=== PATIENT | female | born 1955 | race Caucasian/White ===

== ENCOUNTER 2018-09-21 13:46 | Outpatient (CLI) | payer OTHER ==
--- NOTE | 2018-09-22 15:33 | MMO ---
Bilateral MAMMO Bilat Screen [facility]. CLINICAL HISTORY: Patient is 63 years old and is seen for screening. The patient has the following family history of breast cancer: paternal grandmother, at age 38 and paternal aunt, at age 32. The patient has a history of Skin cancer. VIEWS: The views performed were: bilateral craniocaudal with tomosynthesis and bilateral mediolateral oblique with tomosynthesis. FILMS COMPARED: The present examination has been compared to prior imaging studies performed at [facility] on 08/11/2014 and 05/28/2016, and at [facility] on 05/11/2007, 05/17/2008, 07/18/2009, 07/24/2010 and 08/26/2011. MAMMOGRAM FINDINGS: There are scattered fibroglandular densities. There are benign appearing calcifications seen in both breasts. There are no suspicious masses, calcifications or areas of architectural distortion. IMPRESSION: CALCIFICATIONS IN BOTH BREASTS ARE BENIGN. A ROUTINE FOLLOW-UP MAMMOGRAM IN 1 YEAR IS RECOMMENDED. THE RESULTS OF THIS EXAM WERE SENT TO THE PATIENT. ACR BI-RADS Category 2 - Benign finding MAMMOGRAPHY NOTE: 1. A negative mammogram report should not delay a biopsy if a dominant of clinically suspicious mass is present. 2. Approximately 10% to 15% of breast cancers are not detected by mammography. 3. Adenosis and dense breasts may obscure an underlying neoplasm.
== END 2018-09-21 13:47 | disposition home or self-care (01) ==
LOC: BICMAMMO 13:46
PROVIDERS: ATTEND Family Medicine
DX: Z12.31 Encounter for screening mammogram for malignant neoplasm of breast (principal); R92.1 Mammographic calcification found on diagnostic imaging of breast; Z80.3 Family history of malignant neoplasm of breast; Z85.828 Personal history of other malignant neoplasm of skin
CPT/HCPCS: 77063; 77067

== ENCOUNTER 2018-12-15 09:52 | Day surgery (SDC) | payer OTHER ==
[2018-12-14 15:31] VITALS: BMI 32.5
--- NOTE | 2018-12-15 02:49 | HP ---
HISTORY OF PRESENT ILLNESS: This 63-year-old female comes for a colonoscopy for colon cancer screening. The patient has no specific GI symptoms. There is no family history of colon cancer. ALLERGIES: SULFA AND LEVAQUIN. SOCIAL HISTORY: The patient is a former smoker. Does not drink alcohol. MEDICAL ILLNESS: 1. Skin cancer, status post surgery. 2. Hysterectomy. 3. Retinal tear x2, left eye. 4. Allergic rhinitis. 5. Cataracts. 6. Tendinitis, right shoulder. PHYSICAL EXAMINATION: VITAL SIGNS: Pulse is 72, blood pressure 120/76. HEENT: Conjunctivae clear. CARDIOVASCULAR: First and second heart sounds heard. LUNGS: Clear to auscultation. ABDOMEN: Soft. No organomegaly. No tenderness. No masses. ADMITTING DIAGNOSIS: A 63-year-old female undergoing colonoscopy for colon cancer screening. Job ID: [id number]
--- NOTE | 2018-12-15 11:59 | OP ---
DATE OF PROCEDURE: 12/15/2018 OPERATIVE PROCEDURE: Colonoscopy with biopsy. PREOPERATIVE DIAGNOSIS: A 63-year-old female undergoing colonoscopy for colon cancer screening. POSTOPERATIVE DIAGNOSES: 1. Sigmoid diverticular disease. 2. Small sessile sigmoid polyp. 3. Hemorrhoids. 4. Very tortuous colon. DESCRIPTION OF PROCEDURE: The patient was placed on her left lateral position and was given sedation by Anesthesia Department. A rectal exam was done before the scope was advanced into the rectum. No lesions felt on rectal exam. A Pentax video colonoscope was introduced into the rectum and advanced all the way to the cecum. The patient has no abdominal muscle tone and had a very redundant, tortuous colon. Abdominal compression was applied to advance the scope all the way to the cecum. The mucosa appears normal throughout the colon. The prep was very good. The appendiceal orifice, ileocecal wall, and cecum, no pathology. Withdrawal of scope in the cecum, ascending colon, hepatic flexure, transverse colon, and splenic flexure, no pathology seen. The descending colon, no pathology. The sigmoid colon shows scattered diverticular disease. There was small sessile sigmoid polyp removed with biopsy. Rectum showed hemorrhoids. DISCHARGE PLANNING: This is a 63-year-old female came for colonoscopy for colon cancer screening. The patient undergoes colonoscopy with biopsy. DISCHARGE RECOMMENDATION: 1. The patient does call me if she develops abdominal pain or hematochezia. 2. High-fiber diet. 3. To come back to clinic in 2 weeks. Job ID: [id number]
== END 2018-12-15 12:07 | disposition home or self-care (01) ==
LOC: SDC 09:52
PROVIDERS: ATTEND Internal Medicine Gastroenterology
PROC: 0DBN8ZX Excision of Sigmoid Colon, Via Natural or Artificial Opening Endoscopic, Diagnostic (ICD-10-PCS; principal; 2018-12-15)
DX: Z12.11 Encounter for screening for malignant neoplasm of colon (principal); K63.5 Polyp of colon; K57.30 Diverticulosis of large intestine without perforation or abscess without bleeding; K64.9 Unspecified hemorrhoids; Z88.1 Allergy status to other antibiotic agents; Z88.2 Allergy status to sulfonamides
CPT/HCPCS: 88305

== ENCOUNTER 2020-10-19 08:03 | Outpatient (CLI) | payer MEDICARE, OTHER | END 2020-10-19 08:04 | disposition home or self-care (01) | LOC: SCSRAD 08:03 | PROVIDERS: ATTEND Family Medicine | DX: M25.551 Pain in right hip (principal); M16.11 Unilateral primary osteoarthritis, right hip ==

== ENCOUNTER 2021-06-26 10:11 | Outpatient (CLI) | payer OTHER | END 2021-06-26 10:12 | disposition home or self-care (01) | LOC: BICMAMMO 10:11 | PROVIDERS: ATTEND Family Medicine | DX: Z12.31 Encounter for screening mammogram for malignant neoplasm of breast (principal); Z13.820 Encounter for screening for osteoporosis; Z80.3 Family history of malignant neoplasm of breast; Z85.828 Personal history of other malignant neoplasm of skin; M85.89 Other specified disorders of bone density and structure, multiple sites | CPT/HCPCS: 77063; 77067; 77080 ==

== ENCOUNTER 2024-02-16 14:00 | Outpatient (CLI) | payer MEDICARE ==
[2024-02-16 16:42] LABS: Hematocrit 41.8 % (34.9-44.5); Hemoglobin 14.3 g/dL (12.0-15.5); Mean Corpuscular HGB CONC 34.2 g/dL (32.0-36.0); Mean Corpuscular Hemoglobin 32.4 pg (27.0-33.0); Mean Corpuscular Volume 94.6 fL (81.6-98.3); Mean Platelet Volume 11.1 fL (7.4-10.4); Platelet Count 240 10x3/uL (150-450); RBC Distribution Width 13.2 % (11.5-14.5); Red Blood Cell (RBC) Count 4.42 10x6/uL (3.90-5.03); White Blood Cell (WBC) Count 5.8 10x3/uL (3.5-10.5)
[2024-02-16 17:06] LABS: Anion Gap 16 mmol/L (10-20); BUN (Urea Nitrogen) 22 mg/dL (9.8-20.1); Calc. Creatinine Clearance 0 mL/min (70-130); Calcium 10.1 mg/dL (7.8-10.44); Carbon Dioxide 24 mmol/L (23-31); Chloride 106 mmol/L (98-107); Estimated GFR 85; Glucose 96 mg/dL (80-115); Potassium 4.7 mmol/L (3.5-5.1); Sodium 141 mmol/L (136-145)
== END 2024-02-16 15:00 | disposition home or self-care (01) ==
LOC: LABBT 14:00
PROVIDERS: ATTEND Otolaryngology Plastic Surgery within the Head & Neck
DX: Z01.818 Encounter for other preprocedural examination (principal); J34.2 Deviated nasal septum; J34.3 Hypertrophy of nasal turbinates
CPT/HCPCS: 80048; 85027; 93005; 93010

== ENCOUNTER 2024-02-24 07:33 | Day surgery (SDC) | payer MEDICARE ==
[2024-02-16 15:16] VITALS: BMI 28.4
[2024-02-24] MEDS ORDERED: Oxymetazoline HCl 0.05% (30 ML BOT) ONE (09:16)
[2024-02-24] MEDS ORDERED: Lidocaine 1% PF 5 ML VIAL ONE (09:17)
[2024-02-24] MEDS ORDERED: PROPOFOL 20 ML ONE (09:17)
[2024-02-24] MEDS ORDERED: EPINEPHrine 1 MG/ML VIAL ONE (09:41)
[2024-02-24] MEDS ORDERED: Bacitracin Zinc Ointment 30 gm TUBE ONE (09:41)
[2024-02-24] MEDS ORDERED: fentaNYL PF 100 MCG/2 ML SYRINGE ONE (09:41)
[2024-02-24] MEDS ORDERED: Lidocaine 1% (PF) 30 ML VIAL ONE (09:42)
[2024-02-24] MEDS ORDERED: Rocuronium Bromide 10 MG/ML (10ML VIAL) ONE (10:04)
[2024-02-24] MEDS ORDERED: Dexamethasone 20 MG/5 ML VIAL ONE (10:08)
[2024-02-24] MEDS ORDERED: Ondansetron PF 4 MG/2 ML Vial ONE (10:08)
[2024-02-24] MEDS ORDERED: Glycopyrrolate 0.2 MG/ML 5 ML SYRINGE ONE (10:16)
[2024-02-24] MEDS ORDERED: NEOSTIGMINE 3 MG/3 ML SYRINGE ONE (10:16)
[2024-02-24] MEDS ORDERED: HYDROcodone/Acetaminophen 5/325 mg Tablet ONE (11:23)
== END 2024-02-24 12:32 | disposition home or self-care (01) ==
LOC: SDC 07:33
PROVIDERS: ATTEND Otolaryngology Plastic Surgery within the Head & Neck
PROC: 09BM8ZZ Excision of Nasal Septum, Via Natural or Artificial Opening Endoscopic (ICD-10-PCS; principal; 2024-02-24)
PROC: 09TL8ZZ Resection of Nasal Turbinate, Via Natural or Artificial Opening Endoscopic (ICD-10-PCS; 2024-02-24)
DX: J34.2 Deviated nasal septum (principal); J34.3 Hypertrophy of nasal turbinates; M95.0 Acquired deformity of nose; J34.89 Other specified disorders of nose and nasal sinuses; J30.2 Other seasonal allergic rhinitis; Z79.899 Other long term (current) drug therapy; Z88.2 Allergy status to sulfonamides; G47.33 Obstructive sleep apnea (adult) (pediatric)
CPT/HCPCS: 30140; 30520; J0171; J1100; J2001; J2405; J2704

== ENCOUNTER 2024-07-15 11:44 | Observation (INO) | payer MEDICARE ==
[2024-07-15 14:46] VITALS: BMI 26.9
[2024-07-15] MEDS ORDERED: Ondansetron ODT 4 MG TAB PO PRN (15:24)
[2024-07-15 16:18] LABS: Troponin I Less than 0.010 ng/mL (< 0.028)
[2024-07-15 20:23] LABS: Troponin I Less than 0.010 ng/mL (< 0.028)
[2024-07-15] MEDS: Acetaminophen 325 MG TAB PO PRN (23:49)
[2024-07-16 04:32] VITALS: TEMP 97.9
[2024-07-16 05:08] LABS: #Basophils 0.05 10x3/uL (0.0-0.2); %Basophils 0.9 % (0.0-1.0); %Eosinophils 2.8 % (0.0-10.0); %Neutrophils 52.1 % (42.0-75.0); Hematocrit 39.8 % (36.0-47.0); Hemoglobin 13.2 g/dL (12.0-16.0); Mean Corpuscular HGB CONC 33.2 g/dL (32.0-36.0); Mean Corpuscular Hemoglobin 31.3 pg (27.0-31.0); Mean Corpuscular Volume 94.3 fL (78.0-98.0); Mean Platelet Volume 10.2 fL (7.4-10.4); Platelet Count 212 10x3/uL (130-400); RBC Distribution Width 12.8 % (11.5-14.5); Red Blood Cell (RBC) Count 4.22 mill/uL (4.20-5.40)
[2024-07-16 05:23] LABS: Anion Gap 14 mmol/L (10-20); BUN (Urea Nitrogen) 20 mg/dL (9.8-20.1); Calc. Creatinine Clearance 84 mL/min (70-130); Calcium 8.8 mg/dL (7.8-10.44); Carbon Dioxide 22 mmol/L (23-31); Chloride 107 mmol/L (98-107); Estimated GFR 86; Glucose 111 mg/dL (80-115); Sodium 138 mmol/L (136-145)
[2024-07-16] MEDS: Losartan 25 MG TAB PO SCH (07:38)
[2024-07-16 11:50] VITALS: BP 104/68
[2024-07-16] MEDS ORDERED: Regadenoson 0.4 MG/5 ML SYRINGE ONE (12:20)
== END 2024-07-16 16:29 | disposition home or self-care (01) ==
LOC: OBS 14:10
PROVIDERS: ADMIT Student in an Organized Health Care Education/Training Program; ATTEND Student in an Organized Health Care Education/Training Program
DX: R07.89 Other chest pain (principal); M54.9 Dorsalgia, unspecified; M25.512 Pain in left shoulder; I10 Essential (primary) hypertension; G47.33 Obstructive sleep apnea (adult) (pediatric); H81.09 Meniere's disease, unspecified ear; M85.80 Other specified disorders of bone density and structure, unspecified site; E83.119 Hemochromatosis, unspecified; M19.90 Unspecified osteoarthritis, unspecified site; Z85.828 Personal history of other malignant neoplasm of skin; Z79.899 Other long term (current) drug therapy; Z98.890 Other specified postprocedural states; Z88.2 Allergy status to sulfonamides; Z88.1 Allergy status to other antibiotic agents; Z87.891 Personal history of nicotine dependence
CPT/HCPCS: 78452; 80048; 84484 ×2; 85025; 93017; A9502; G0378 ×2; J2785 ×2; 36415

== ENCOUNTER 2025-07-11 11:18 | Outpatient (CLI) | payer MEDICARE | END 2025-07-11 11:19 | disposition home or self-care (01) | LOC: SCSBT 11:18 | PROVIDERS: ATTEND Nurse Practitioner Primary Care | DX: M85.89 Other specified disorders of bone density and structure, multiple sites (principal) | CPT/HCPCS: 77080 ==